=== PATIENT | female | born 1975 | race African-American/Black ===

== ENCOUNTER 2018-11-30 22:23 | Emergency (ER) | payer OTHER ==
[2018-11-30 22:28] VITALS: BP 122/82; PULSE 80; TEMP 98.2; BMI 29.9
[2018-11-30] MEDS ORDERED: KETOROLAC TROMETHAMINE 60 MG/2 ML VIAL ONE (22:42)
[2018-11-30] MEDS ORDERED: KETOROLAC TROMETHAMINE 60 MG/2 ML VIAL IM ONE (22:42)
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
== END 2018-11-30 22:54 | disposition home or self-care (01) ==
LOC: JERFT 22:23
PROC: 3E0233Z Introduction of Anti-inflammatory into Muscle, Percutaneous Approach (ICD-10-PCS; principal; 2018-11-30)
DX: S13.4XXA Sprain of ligaments of cervical spine, initial encounter (principal); V43.52XA Car driver injured in collision with other type car in traffic accident, initial encounter; Y92.414 Local residential or business street as the place of occurrence of the external cause; Y93.89 Activity, other specified; Y99.8 Other external cause status
CPT/HCPCS: 99281-25